=== PATIENT | female | born 1975 | race American Indian/Alaskan Native ===

== ENCOUNTER 2017-01-29 21:30 | Emergency (ER) | payer SELFPAY ==
[2017-01-29 23:53] LABS: Basophils % (Auto) 0.4 % (0.0-1.8); Hematocrit 33.9 % (30.3-42.9); Hemoglobin 11.3 gm/dl (10.1-14.3); Mean Corpuscular HGB Conc 33 % (30-34); Mean Corpuscular Hemoglobin 28 pg (28-32); Mean Corpuscular Volume 83 fl (79-97); Platelet Count 225 K/mm3 (140-440); Red Blood Count 4.07 M/mm3 (3.65-5.03); Red Cell Distribution Width 14.7 % (13.2-15.2); White Blood Count 6.8 K/mm3 (4.5-11.0)
[2017-01-30 00:01] LABS: Anion Gap 17 mmol/L; BUN/Creatinine Ratio 10; Blood Urea Nitrogen 8 mg/dL (7-17); Calcium 8.9 mg/dL (8.4-10.2); Carbon Dioxide 22 mmol/L (22-30); Chloride 105.7 mmol/L (98-107); Glucose 90 mg/dL (65-100); Sodium 141 mmol/L (137-145)
--- NOTE | 2017-01-30 07:32 | Emergency Department Report ---
HPI - General Chief Complaint: Upper Respiratory Infection Time Seen by Provider: 01/30/17 07:31 - HPI HPI: Patient here before that she has umbilical hernia since May 2016 and she is complaining of abdominal pain that side. She is also complaining of lumps within her left breast 3 weeks and productive cough with some shortness of breath 1 week. Denies any fever or chills. Denies any nausea or vomiting. Pain to her umbilical areas. Tympanic comes and goes. Denies any nipple discharge or change in the skin to her breasts. Patient able to tolerate food well. She does not have insurance and does not have access to primary care. Pain is worse with touch better with rest. No [id number] medication taken. He denies any shortness chest pain. Denies any sore throat and reports cough and on and off. Reports nasal congestion and runny nose. ED Past Medical Hx - Past Medical History Previous Medical History?: Yes Additional medical history: Umbilical Hernia - Surgical History Past Surgical History?: Yes Additional Surgical History: C-Sec x1. Obesity - Family History Family history: hypertension - Social History Smoking Status: Never Smoker Substance Use Type: None - Medications Home Medications: Home Medications Medication Instructions Recorded Confirmed Last Taken Type Amoxicillin/Potassium Clav 1 each PO Q12H #20 tablet 01/30/17 Unknown Rx [Augmentin 875-125 Tablet] Cetirizine HCl [ZyrTEC] 10 mg PO QAM #14 capsule 01/30/17 Unknown Rx Fluticasone [Flonase] 1 spray NS QDAY #1 bottle 01/30/17 Unknown Rx Naproxen [Naprosyn] 500 mg PO BID PRN #12 tablet 01/30/17 Unknown Rx ED Review of Systems ROS: Stated complaint: SOB,BREAST PAIN,ABDOMINAL PAIN Other details as noted in HPI Comment: All other systems reviewed and negative Constitutional: no symptoms reported Eyes: denies: eye pain ENT: congestion (Runny nose). denies: ear pain, throat pain Respiratory: cough, shortness of breath. denies: SOB with exertion, SOB at rest , stridor, wheezing Cardiovascular: denies: chest pain, palpitations, dyspnea on exertion, edema, syncope, paroxysmal nocturnal dyspnea Gastrointestinal: abdominal pain. denies: nausea, vomiting, diarrhea, constipation, hematemesis, melena, hematochezia Genitourinary: other (lump left breast x3 weeks). denies: urgency, dysuria, frequency, hematuria, discharge, abnormal menses, dyspareunia Musculoskeletal: denies: back pain, joint swelling, arthralgia, myalgia Skin: denies: rash, pruritus, other Neurological: denies: headache, weakness, numbness, paresthesias, confusion, abnormal gait, vertigo Physical Exam - Physical Exam Vital Signs: Vital Signs 01/29/17 23:21 Temperature 98.2 F Pulse Rate 67 Respiratory 18 Rate Blood Pressure 120/72 [Right] O2 Sat by Pulse 100 Oximetry Vital Signs 01/29/17 23:21 Temperature 98.2 F Pulse Rate 67 Respiratory 18 Rate Blood Pressure 120/72 [Right] O2 Sat by Pulse 100 Oximetry General: This is a 41-year-old female well-nourished well-developed in no acute distress Physical Exam: Head: Normocephalic, atraumatic, no abrasion, no bruising and no contusion. Eyes: Biateral pupils equal and reactive to light, bilateral EOM intact.. Bilateral conjunctival and sclera without injection, normal accommodation. Ears: Bilateral EAC without any redness drainage or swelling, Bilateral TM pearly vazquez bilateral tragus is normal and nontender. No auricular abnormality. No Mastoid bones tenderness. Nose: Moist, erythema and congested with clear drainage. No maxillary or frontal sinus tenderness. Mouth: Pharyngeal exudate or erythema . No peritonsillar abscess. Uvula is midline and oral airways patent. Moist and tongue is normal Neck: Supple, No Cervical adenopathy, full range of motion and no C-spine tenderness. No swelling or tracheal deviation Cardiovascular: S1, S2. Regular rate and rhythm. No murmur. Capillary refill is less then 3 seconds. Abdomen: Tender to palpate around umbilical area. Small mass felt at umbilical area but no protrusion noted. No erythema. No guarding or rebound tenderness. Positive bowel sounds in all quadrants. No CVA tenderness. Lungs: Clear to auscultate bilaterally. No rhonchi, wheezes or rales. No chest wall tenderness. Dry cough Breast exam: Both breasts examined and left breast found to have quarter size lump laterally outer left breast at 3 o'clock position. Nontender to palpate and non-mobile. Area lateral to both breasts normal and no nipple discharge bilaterally. Skin to breasts bilaterally normal. MSK: Strength 5/5 in all extremities. No joint deformity or crepitus. Normal inspection. Full range of motion to all extremities Extremities: No clubbing, cyanosis or edema. +2 pulses. No neurovascular compromise Skin: Clean, dry and intact. No rash or lesions. Psych: Normal mood and behavior. ED Course Vital Signs 01/29/17 23:21 Temperature 98.2 F Pulse Rate 67 Respiratory 18 Rate Blood Pressure 120/72 [Right] O2 Sat by Pulse 100 Oximetry - Reevaluation(s) Reevaluation #1: 01/30/17 10:46 Patient stable throughout ED course. She had CT scan with IV contrast which I explained to her in detail. ED Medical Decision Making - Lab Data Result diagrams: 01/29/17 23:23 01/29/17 23:23 Lab Results 01/29/17 01/29/17 01/29/17 Range/Units 23:23 23:23 23:28 WBC 6.8 (4.5-11.0) K/mm3 RBC 4.07 (3.65-5.03) M/mm3 Hgb 11.3 (10.1-14.3) gm/dl Hct 33.9 (30.3-42.9) % MCV 83 (79-97) fl MCH 28 (28-32) pg MCHC 33 (30-34) % RDW 14.7 (13.2-15.2) % Plt Count 225 (140-440) K/mm3 Lymph % (Auto) 52.9 H (13.4-35.0) % [place] % (Auto) 7.4 H (0.0-7.3) % Eos % (Auto) 1.0 (0.0-4.3) % Baso % (Auto) 0.4 (0.0-1.8) % Lymph # 3.6 (1.2-5.4) K/mm3 [place] # 0.5 (0.0-0.8) K/mm3 Eos # 0.1 (0.0-0.4) K/mm3 Baso # 0.0 (0.0-0.1) K/mm3 Seg Neutrophils % 38.3 L (40.0-70.0) % Seg Neutrophils # 2.6 (1.8-7.7) K/mm3 Sodium 141 (137-145) mmol/L Potassium 4.0 (3.6-5.0) mmol/L Chloride 105.7 (98-107) mmol/L Carbon Dioxide 22 (22-30) mmol/L Anion Gap 17 mmol/L BUN 8 (7-17) mg/dL Creatinine 0.8 (0.7-1.2) mg/dL Estimated GFR > 60 ml/min BUN/Creatinine Ratio 10 % Glucose 90 (65-100) mg/dL Calcium 8.9 (8.4-10.2) mg/dL Troponin T < 0.010 (0.00-0.029) ng/mL HCG, Qual Negative (Negative) - EKG Data -: EKG Interpreted by Me (attending physician) EKG shows normal: sinus rhythm Rate: normal - EKG Data When compared to previous EKG there are: no significant change Interpretation: no acute changes - Radiology Data Radiology results: report reviewed Chest x-ray revealed no acute cardiopulmonary findings. CT scan of the abdomen and pelvis with IV contrast revealed supraumbilical hernia containing mesenteric fat and a small amount of fluid. There are knee appear mildly inflamed on CT. Uterine fibroid disease. Hernia is 1.5 cm. Liver is normal in size and without any focal defect. Pancreas is normal. Spleen is normal. Cough no gallstones or biliary dilatation or noted. Pancreas is normal. The kidneys are normal in size and position with no evidence of hydronephrosis or mass. The adrenal glands are normal. There is no intestinal obstruction or ascites. Normal appendix. Luc aorta is normal. The uterus is enlarged and contains at least one large fibroid in the posterior fundal region measuring up to 6 cm. The adnexa are remarkable. There is no evidence of peritoneal ear or fluid. There is no evidence of any abnormal masses or fluid collection within the pelvis. No adeno opacities identified and the bladder is normal. - Medical Decision Making ED course: Patient presents to emergency room with productive cough, chest tightness and some shortness of breath 1 week. She was found to have upper respiratory tract infection her x-ray revealed no acute cardiopulmonary functions O2 sat is 100% and her vital signs are stable. Patient with clear lungs and dry cough with nasal congestion and clear nasal drainage. Per oral place patient at 0 risk for pulmonary embolism. Patient also with complaint of abdominal pain on and off from hernia that she had from May 2016. CT scan with IV contrast found 1.5 cm supraumbilical hernia containing mesenteric fat and a small amount of fluid. There is no bowel loops Inc. and hernia. Her knee is mildly inflamed. Physical exam for mild tenderness to abdomen with no erythema or protrusion of hernia. I explained to patient and her CT scan and will provide her with a CD for follow-up visit outpatient surgery. I also spoke to Dr. Jeter who agrees that patient should be followed up outpatient. I collaborated with Dr. Jeter inpatient lab results, x-ray results, clinical findings with breast mass and these could be followed on an outpatient basis. Patient is also complaining of a lump to her left breast which was felt on exam. She has a quarter size lump to 3 o'clock position left breast otherwise normal breast exam. I explained to patient that she will need outpatient mammogram and I'll refer her to [facility] for further management and treatment of breast mass, ventral hernia and upper respiratory tract infection. I also explained to her that her labs were within normal limits and that her EKG was stable. I explained her chest x-ray to her and her cardiac labs. She voiced understanding and and patient discharged home with family in stable condition to follow up at [facility]. Critical care attestation.: If time is entered above; I have spent that time in minutes in the direct care of this critically ill patient, excluding procedure time. ED Disposition Clinical Impression: Breast mass, left, Upper respiratory infection, acute, Cough in adult Abdominal hernia without obstruction and without gangrene Qualifiers: Hernia type: ventral Qualified Code(s): K43.9 - Ventral hernia without obstruction or gangrene Abdominal pain Qualifiers: Abdominal location: periumbilical Qualified Code(s): R10.33 - Periumbilical pain Uterine fibroid Qualifiers: Uterine leiomyoma location: unspecified location Qualified Code(s): D25.9 - Leiomyoma of uterus, unspecified Disposition: DC-01 TO HOME OR SELFCARE Is pt being admited?: No Does the pt Need Aspirin: No Condition: Stable Instructions: Mammogram (ED), Pap Smear (ED), Uterine Fibroids (ED), Ventral Hernia (ED), Abdominal Pain (ED), Breast Mass (ED), Acute Cough (ED) Additional Instructions: Please follow up with [facility] and have them refer you for outpatient mammogram for Follow-up at outpatient surgery for abdominal hernia and bring Cd for a few You Have uterine fibroids and will need to follow up with [facility]. take antibiotic as prescribed Increase her fluid intake. Please call my [facility] doctor [facility] to schedule an appointment for Pap smear and to manage fibroids. The information and discharge instruction paperwork Prescriptions: Amoxicillin/Potassium Clav [Augmentin 875-125 Tablet] 1 each PO Q12H #20 tablet Cetirizine HCl [ZyrTEC] 10 mg PO QAM #14 capsule Fluticasone [Flonase] 1 spray NS QDAY #1 bottle Naproxen [Naprosyn] 500 mg PO BID PRN #12 tablet PRN Reason: Pain Referrals: [facility] [Outside] - 02/01/17 LUCIANO ARREGUIN DO [Staff Physician] - 2-3 Days [facility] [Provider Group] - 2-3 Days Forms: Work/School Release Form(ED)
--- NOTE | 2017-01-30 07:43 | XRay Report ---
ROUTINE CHEST, TWO VIEWS: HISTORY: Productive cough. The trachea, heart, mediastinal contour, lung hernandez and bony thorax are unremarkable. IMPRESSION: Unremarkable chest x-ray.
--- NOTE | 2017-01-30 09:21 | Cat Scan Report ---
CT SCAN OF THE ABDOMEN AND PELVIS WITH CONTRAST: HISTORY: Abdominal pain, hernia. TECHNIQUE: Helical CT in 1.25mm intervals following IV contrast. Sagittal and coronal reconstructions. FINDINGS: A supraumbilical ventral wall defect measures 1.5 cm and contains mesenteric fat and a small amount of fluid. No bowel loops are incorporated. The liver is normal in size and is without focal defect. No gallstones or biliary dilatation are noted. The spleen and pancreas demonstrate a normal size and attenuation with no evidence of abnormal mass. The kidneys are normal in size and position with no evidence of hydronephrosis or mass. The adrenal glands are normal. There is no intestinal obstruction or ascites. Normal appendix. The abdominal aorta is normal. The uterus is enlarged and contains at least one large fibroid in the posterior fundal region measuring up to 6 cm. The adnexa are unremarkable. There is no evidence of peritoneal air or fluid. There is no evidence of any abnormal masses or fluid collections within the pelvis. No adenopathy is identified. The bladder is normal. IMPRESSION: Supraumbilical hernia containing mesenteric fat and a small amount of fluid. The hernia appears mildly inflamed on CT. Uterine fibroid disease.
[2017-01-30 11:15] VITALS: BP 110/78
== END 2017-01-30 11:15 | disposition home or self-care (01) ==
LOC: ED 21:30
DX: J06.9 Acute upper respiratory infection, unspecified (principal); K46.9 Unspecified abdominal hernia without obstruction or gangrene; D25.9 Leiomyoma of uterus, unspecified
CPT/HCPCS: 36415; 71020; 74177; 80048; 84484; 84703; 85025; 93005; 93010; 99284; Q9967